=== PATIENT | male | born 1940 | race Caucasian/White ===

== ENCOUNTER → 2017-03-18 | Outpatient (CLI) | payer MEDICARE, BC ==
[~2017-03-18] MED LIST: ADVAIR 250/501 DISK IH; ALLOPURINOL300 MG PO; ASPIR 8181 M1 PO; BLOOD PRESSURE1 EA11 PO; CALCIUM WITH M1 EAC2 PO; CLEOCIN150 MG PO; DAILY VALUE1 EACH PO; FISH OIL 1,0001 EAC7 PO; FISH OIL SOFTG1 EACH PO; FLORASTOR250 MG PO; FUROSEMIDE20 MG PO; FUROSEMIDE40 MG PO; LANTUS (UNITS)1 UNIT IV; LANTUS 3 M100 UNITS1 SC; LISINOPRIL10 MG PO; LISINOPRIL5 MG PO; MULTIVITAMIN1 EAC2 PO; NORCO 5/3251 TABLET PO; NOVOLOG (UNITS1 UNIT IV; NOVOLOG 10100 UNITS/ SC; NOVOLOG PE100 UNITS/ SC; OMEPRAZOLE20 MG PO; OMEPRAZOLE40 M1 PO; PRESERVISION T1 EACH PO; PROAIR HFA8.5 GM IH; PROVENTIL,2.5 MG/0.5 IH; SIMVASTATIN20 MG PO; SIMVASTATIN5 MG PO; SPIRIVA1 INHALATI IH; TAMSULOSIN HCL0.4 MG PO; TYLENOL REGULA325 MG PO; ZYLOPRIM50 MG PO
== END | disposition home or self-care (01) ==
LOC: CDC 10:00
DX: N47.1 Phimosis (principal); N47.6 Balanoposthitis; R94.31 Abnormal electrocardiogram [ECG] [EKG]
CPT/HCPCS: 93000

== ENCOUNTER 2017-04-02 11:44 | Emergency (ER) | payer OTHER, BC ==
[~2017-04-02] VITALS: Ht 170.2 cm; Wt 130.8 kg
[2017-04-02] MEDS ORDERED: LANTUS 3 M100 UNITS1 SC (13:16)
[2017-04-02] MEDS ORDERED: ACETAMINOPHEN-1 EAC1 PO (13:17)
[2017-04-02 14:21] LABS: ADD MIUA? NO; BILIRUBIN NEGATIVE; BLOOD NEGATIVE; COLOR AMBER ((YELLOW)); GLUCOSE (STRIP) NEGATIVE; KETONES NEGATIVE; LEUKOCYTES NEGATIVE; NITRITE NEGATIVE; PROTEIN (STRIP) NEGATIVE; SPECIFIC GRAVITY 1.029 (1.000-1.030); UCUL ADDED? NO
[2017-04-02 14:58] LABS: HEMATOCRIT 44.3 % (38.0-50.0); MCH 29.7 PG (29.0-34.0); MCHC 32.7 G/DL (30.0-36.0); MCV 90.8 FL (86-99); RBC DIS.WIDTH-CV 13.5 % (11.8-14.6); RBC DIS.WIDTH-SD 45.6 % (39-53); RED BLOOD COUNT 4.88 M/uL (4.00-5.50)
[2017-04-02 14:59] LABS: PLATELET COUNT 251 K/uL (156-360)
[2017-04-02 15:06] LABS: CHLORIDE 108 mEq/L (99-109); POTASSIUM 4.8 mEq/L (3.7-5.4); SODIUM 140 mEq/L (136-147)
[2017-04-02 15:08] LABS: GLUCOSE 173 mg/dL (70-99)
[2017-04-02 15:09] LABS: ANION GAP 11 MEQ/L (2-14)
[2017-04-02 15:12] LABS: GFR ESTIMATE (CALCULATED) > 59 mL/min/; UREA NITROGEN (BUN) 30 mg/dL (9-23)
[2017-04-02] MEDS ORDERED: PERCOCET 5/31 TABLET PO (15:33)
[2017-04-02] MEDS ORDERED: MYCOSTATIN15 GM PO (15:33)
[2017-04-02 15:45] VITALS: BP 128/89
== END 2017-04-02 15:45 | disposition home or self-care (01) ==
LOC: EME 11:44
PROVIDERS: Physician Assistant
DX: G89.18 Other acute postprocedural pain (principal); N48.89 Other specified disorders of penis; Z98.890 Other specified postprocedural states; R30.0 Dysuria; R21 Rash and other nonspecific skin eruption; E11.9 Type 2 diabetes mellitus without complications; Z79.4 Long term (current) use of insulin; I10 Essential (primary) hypertension; J44.9 Chronic obstructive pulmonary disease, unspecified; Z85.038 Personal history of other malignant neoplasm of large intestine; Z87.891 Personal history of nicotine dependence
CPT/HCPCS: 80048; 81003; 85027; 87070; 87075; 87205; 99281; 99284

== ENCOUNTER 2017-06-25 11:01 | Inpatient (IN) | payer OTHER, BC ==
[~2017-06-25] VITALS: Ht 170.2 cm; Wt 116.7 kg
[~2017-06-25 11:01] MED LIST changes: +ACETAMINOPHEN-1 EAC1 PO; +ADVAIR 100/501 DISK IH; +AUGMENTIN875 MG PO; +AZITHROMYCIN250 MG PO; +CHOLESTYRAMINE378 GM PO; +COLD-FLU RELIE295 ML PO; +MYCOSTATIN15 GM PO; +PERCOCET 5/31 TABLET PO; +PREDNISONE20 MG PO; +VITAMIN D31000 UNI2 PO
[2017-06-25 11:59] LABS: EOSINOPHIL (%) 4.7 % (0-5); EOSINOPHIL COUNT 0.2 K/uL (0-0.3); HEMATOCRIT 42.7 % (38.0-50.0); IMMATURE GRANULOCYTE (%) 0.3 % (0.0-0.7); INSTRUMENT ABS NEUTROPHIL CT 1.4 K/uL; LYMPHOCYTE COUNT 1.4 K/uL (1.0-2.8); MCH 30.7 PG (29.0-34.0); MCHC 33.5 G/DL (30.0-36.0); MCV 91.6 FL (86-99); MEAN PLAT.VOLUME 8.9 uM^3 (9.0-12.4); MONOCYTE (%) 13.2 % (3-12); MONOCYTE COUNT 0.5 K/uL (0-0.8); NEUTROPHIL (%) 40.2 % (45-76); NEUTROPHIL COUNT 1.4 K/uL (1.8-6.4); PLATELET COUNT 191 K/uL (156-360); RBC DIS.WIDTH-CV 13.7 % (11.8-14.6); RED BLOOD COUNT 4.66 M/uL (4.00-5.50); WHITE BLOOD COUNT 3.4 K/uL (4.1-10.2)
[2017-06-25 12:13] LABS: CHLORIDE 105 mEq/L (99-109); POTASSIUM 4.1 mEq/L (3.7-5.4); SODIUM 139 mEq/L (136-147)
[2017-06-25 12:15] LABS: GLUCOSE 164 mg/dL (70-99)
[2017-06-25 12:16] LABS: ANION GAP 9 MEQ/L (2-14)
[2017-06-25 12:18] LABS: GFR ESTIMATE (CALCULATED) > 59 mL/min/
[2017-06-25 12:19] LABS: TROP-I INTERPRETATION NEGATIVE; TROPONIN-I < 0.01 ng/mL (0.0-0.30); UREA NITROGEN (BUN) 11 mg/dL (9-23)
[2017-06-25] MEDS ORDERED: FLORASTOR250 MG PO (16:27)
[2017-06-25] MEDS ORDERED: NOVOLOG PE100 UNITS/ SC (16:27)
[2017-06-25] MEDS ORDERED: CORTEF5 M1 PO (16:28)
[2017-06-25 17:13] VITALS: BP 144/75
[2017-06-25 19:30] VITALS: BP 122/64
[2017-06-25 22:14] LABS: POINT-OF-CARE METER ID UU13113831
[2017-06-25 23:48] VITALS: BP 95/55
[2017-06-26 03:16] VITALS: BP 122/62
[2017-06-26 07:12] VITALS: BP 122/70; BP 90/56
[2017-06-26 07:52] LABS: POINT-OF-CARE METER ID UU13113831
[2017-06-26 08:31] LABS: POINT-OF-CARE METER ID UU13113831
[2017-06-26 08:39] LABS: HEMATOCRIT 42.8 % (38.0-50.0); MCH 30.5 PG (29.0-34.0); MCHC 32.9 G/DL (30.0-36.0); MCV 92.4 FL (86-99); MEAN PLAT.VOLUME 9.2 uM^3 (9.0-12.4); PLATELET COUNT 209 K/uL (156-360); RBC DIS.WIDTH-SD 47.4 % (39-53); RED BLOOD COUNT 4.63 M/uL (4.00-5.50); WHITE BLOOD COUNT 3.3 K/uL (4.1-10.2)
[2017-06-26 09:12] LABS: ALKALINE PHOSPHATASE 68 IU/L (3-129); ANION GAP 11 MEQ/L (2-14); CHLORIDE 105 MEQ/L (99-109); GFR ESTIMATE (CALCULATED) > 59 mL/min/; SAMPLE HEMOLYSIS CHECK 0; SAMPLE ICTERIC CHECK 0; SAMPLE LIPEMIA CHECK 0; SODIUM 141 MEQ/L (136-147); TOTAL BILIRUBIN 1.2 MG/DL (0.0-1.0); UREA NITROGEN (BUN) 11 mg/dL (9-23)
[2017-06-26 09:15] LABS: GLUCOSE 74 mg/dL (70-99)
[2017-06-26 10:00] LABS: INTERNAL CONTROL VALID? YES
[2017-06-26 11:13] LABS: C DIFF TOXIN NEGATIVE (NEGATIVE)
[2017-06-26 11:14] LABS: PROBE CHECK PASS; SPECIMEN PROCESSING CONTROL PASS
[2017-06-26 11:19] VITALS: BP 115/81
[2017-06-26 12:12] LABS: POINT-OF-CARE METER ID UU13113831
[2017-06-26 15:27] VITALS: BP 115/58
[2017-06-26 17:28] LABS: POINT-OF-CARE METER ID UU13113831
[2017-06-26 19:43] VITALS: BP 112/54
[2017-06-26 21:01] LABS: POINT-OF-CARE METER ID UU14162513
[2017-06-27] VITALS (7 sets, daily range): BP systolic 104–135; BP diastolic 56–81
[2017-06-27 07:34] LABS: POINT-OF-CARE METER ID UU14162513
[2017-06-27 12:29] LABS: POINT-OF-CARE METER ID UU14162513
[2017-06-27 17:49] LABS: POINT-OF-CARE METER ID UU14162513
[2017-06-27 22:10] LABS: POINT-OF-CARE METER ID UU13113831
[2017-06-28] VITALS (7 sets, daily range): BP systolic 87–146; BP diastolic 54–77
[2017-06-28 08:14] LABS: POINT-OF-CARE METER ID UU13113700
[2017-06-28 12:24] LABS: POINT-OF-CARE METER ID UU13113700
[2017-06-28 17:12] LABS: POINT-OF-CARE METER ID UU13113700
[2017-06-28 22:05] LABS: POINT-OF-CARE METER ID UU13113700
[2017-06-29 04:05] VITALS: BP 132/78
[2017-06-29 07:11] VITALS: BP 135/86
[2017-06-29 09:07] LABS: POINT-OF-CARE METER ID UU13113700
[2017-06-29 10:55] VITALS: BP 135/75
[2017-06-29 10:56] VITALS: BP 133/81
[2017-06-29 11:01] VITALS: BP 93/66
[2017-06-29] MEDS ORDERED: CORTEF10 MG PO (11:22)
[2017-06-29] MEDS ORDERED: LANTUS 3 M100 UNITS1 SC (11:22)
[2017-06-29 12:39] LABS: POINT-OF-CARE METER ID UU13113700
== END 2017-06-29 14:00 | disposition home or self-care (01) | DRG 312 ==
LOC: EME 11:01 → EDOF 15:42 → ENRESERV 15:47 → 5WEST 17:02 → CANRESERV 06-26 10:33 → ENRESERV 06-26 10:33 → 5WEST 06-29 14:00
PROVIDERS: Emergency Medicine; Internal Medicine; Nurse Practitioner Adult Health
DX: I95.1 Orthostatic hypotension (principal); E86.0 Dehydration; M10.9 Gout, unspecified; J44.9 Chronic obstructive pulmonary disease, unspecified; J43.9 Emphysema, unspecified; I10 Essential (primary) hypertension; H35.30 Unspecified macular degeneration; G47.33 Obstructive sleep apnea (adult) (pediatric); E11.51 Type 2 diabetes mellitus with diabetic peripheral angiopathy without gangrene; G93.89 Other specified disorders of brain; G51.0 Bell's palsy; E78.5 Hyperlipidemia, unspecified; E66.01 Morbid (severe) obesity due to excess calories; R63.4 Abnormal weight loss; Z90.49 Acquired absence of other specified parts of digestive tract; Z87.891 Personal history of nicotine dependence; Z79.4 Long term (current) use of insulin; Z85.038 Personal history of other malignant neoplasm of large intestine; Z82.3 Family history of stroke; Z79.899 Other long term (current) drug therapy; Z80.0 Family history of malignant neoplasm of digestive organs; Z68.41 Body mass index [BMI] 40.0-44.9, adult; Z87.01 Personal history of pneumonia (recurrent); Z80.42 Family history of malignant neoplasm of prostate; Z80.3 Family history of malignant neoplasm of breast; Z86.73 Personal history of transient ischemic attack (TIA), and cerebral infarction without residual deficits; E87.70 Fluid overload, unspecified
CPT/HCPCS: 36415; 70450; 70551; 71010; 71020; 72070; 72100; 80048; 80053; 80069; 80400; 82024 90; 82043; 82272; 82533; 82533 91; 82570; 82948; 83880; 84484; 85025; 85027; 87177; 87493; 87506; 93005; 93306; 94640; 94640 76; 94760; 94799; 97530 GO; 97530 GP; 99202; 99281; 99284; 99285; G0378; G8978 GP CJ; G8979 GP CI; G8987 GO CJ; G8988 CI; J0834; J1650; J7030; J7040; J7120

== ENCOUNTER 2017-08-21 02:11 | Inpatient (IN) | payer OTHER, BC ==
[~2017-08-21] VITALS: Ht 170.2 cm; Wt 115.1 kg
[~2017-08-21 02:11] MED LIST changes: +CORTEF10 MG PO; +CORTEF5 M1 PO
[2017-08-21 04:09] LABS: HEMATOCRIT 38.3 % (38.0-50.0); HEMOGLOBIN 13.1 G/DL (12.5-16.6); MCH 30.2 PG (29.0-34.0); MCHC 34.2 G/DL (30.0-36.0); MCV 88.2 FL (86-99); PLATELET COUNT 152 K/uL (156-360); RBC DIS.WIDTH-CV 12.6 % (11.8-14.6); RED BLOOD COUNT 4.34 M/uL (4.00-5.50); WHITE BLOOD COUNT 5.2 K/uL (4.1-10.2)
[2017-08-21 04:15] LABS: INTER. NORMALIZED RATIO 1.1
[2017-08-21 04:18] LABS: PTT 29.5 SEC (25-37)
[2017-08-21 04:20] LABS: ALBUMIN 3.4 g/dL (3.2-4.8); CHLORIDE 106 mEq/L (99-109); POTASSIUM 4.4 mEq/L (3.7-5.4); SODIUM 136 mEq/L (136-147)
[2017-08-21 04:22] LABS: GLUCOSE 326 mg/dL (70-99)
[2017-08-21 04:23] LABS: TOTAL PROTEIN 5.6 g/dL (6.4-8.3)
[2017-08-21 04:24] LABS: TOTAL BILIRUBIN 0.6 mg/dL (0.0-1.0)
[2017-08-21 04:26] LABS: ALKALINE PHOSPHATASE 109 IU/L (3-129); GFR ESTIMATE (CALCULATED) > 59 mL/min/ (58.99-99999)
[2017-08-21 04:27] LABS: UREA NITROGEN (BUN) 11 mg/dL (9-23)
[2017-08-21 04:28] LABS: AST (GOT) 30 IU/L (2-34)
[2017-08-21 04:29] LABS: ALT (GPT) 29 IU/L (3-49); LIPASE 6 U/L (1.0-51.0)
[2017-08-21 04:30] LABS: TROP-I INTERPRETATION NEGATIVE; TROPONIN-I < 0.01 ng/mL (0.0-0.30)
[2017-08-21 06:32] LABS: APPEARANCE CLEAR ((CLEAR)); BILIRUBIN NEGATIVE; BLOOD NEGATIVE; COLOR YELLOW ((YELLOW)); GLUCOSE (STRIP) >=500; KETONES NEGATIVE; LEUKOCYTES NEGATIVE; NITRITE NEGATIVE; PROTEIN (STRIP) NEGATIVE; SPECIFIC GRAVITY 1.016 (1.000-1.030); UROBILINOGEN 0.2 MG/DL (0.2-1.0)
[2017-08-21] MEDS ORDERED: FLOMAX0.4 MG PO (08:15)
[2017-08-21] MEDS ORDERED: LANTUS 3 M100 UNITS1 SC (08:16)
[2017-08-21] MEDS ORDERED: FLORINEF ACETA0.1 MG PO (08:17)
[2017-08-21 17:00] VITALS: BP 134/71
[2017-08-21 20:04] VITALS: BP 123/53
[2017-08-21 23:21] VITALS: BP 124/69
[2017-08-22 04:00] VITALS: BP 150/69
[2017-08-22 05:55] LABS: BASOPHIL (%) 0.4 % (0-1); EOSINOPHIL (%) 6.4 % (0-5); EOSINOPHIL COUNT 0.3 K/uL (0-0.3); HEMATOCRIT 39.4 % (38.0-50.0); HEMOGLOBIN 13.5 G/DL (12.5-16.6); IMMATURE GRANULOCYTE (%) 0.2 % (0.0-0.7); LYMPHOCYTE (%) 36.1 % (15-42); LYMPHOCYTE COUNT 1.8 K/uL (1.0-2.8); MCH 30.6 PG (29.0-34.0); MCHC 34.3 G/DL (30.0-36.0); MCV 89.3 FL (86-99); MONOCYTE (%) 9.4 % (3-12); MONOCYTE COUNT 0.5 K/uL (0-0.8); NEUTROPHIL (%) 47.5 % (45-76); NEUTROPHIL COUNT 2.3 K/uL (1.8-6.4); PLATELET COUNT 155 K/uL (156-360); RBC DIS.WIDTH-CV 12.5 % (11.8-14.6); RBC DIS.WIDTH-SD 41.3 % (39-53); RED BLOOD COUNT 4.41 M/uL (4.00-5.50); WHITE BLOOD COUNT 4.9 K/uL (4.1-10.2)
[2017-08-22 06:29] LABS: CHLORIDE 105 MEQ/L (99-109); GFR ESTIMATE (CALCULATED) > 59 mL/min/ (58.99-99999); GLUCOSE 181 mg/dL (70-99); SODIUM 140 MEQ/L (136-147); UREA NITROGEN (BUN) 12 mg/dL (9-23)
[2017-08-22 08:00] VITALS: BP 137/81
[2017-08-22] MEDS ORDERED: AMLODIPINE BESYL5 MG PO (11:31)
[2017-08-22 11:51] VITALS: BP 124/76
[2017-08-22 15:11] VITALS: BP 119/61
[2017-08-22 20:00] VITALS: BP 149/80
[2017-08-22 23:35] VITALS: BP 145/65
[2017-08-23 03:31] VITALS: BP 140/68
[2017-08-23 08:36] VITALS: BP 153/78
[2017-08-23 11:14] VITALS: BP 137/89
== END 2017-08-23 13:12 | disposition home health service (06) | DRG 86 ==
LOC: EME 02:11 → EDOF 04:51 → 4EAST 04:51 → ENRESERV 04:55 → 4EAST 16:48 → ENPENDDIS 08-23 → 4EAST 08-23 13:12
PROVIDERS: Emergency Medicine; Hospitalist; Internal Medicine
DX: S06.5X0A Traumatic subdural hemorrhage without loss of consciousness, initial encounter (principal); E27.40 Unspecified adrenocortical insufficiency; E55.9 Vitamin D deficiency, unspecified; E11.65 Type 2 diabetes mellitus with hyperglycemia; I10 Essential (primary) hypertension; J43.9 Emphysema, unspecified; W01.0XXA Fall on same level from slipping, tripping and stumbling without subsequent striking against object, initial encounter; Y92.009 Unspecified place in unspecified non-institutional (private) residence as the place of occurrence of the external cause; M10.9 Gout, unspecified; K21.9 Gastro-esophageal reflux disease without esophagitis; E78.5 Hyperlipidemia, unspecified; G51.0 Bell's palsy; Z87.891 Personal history of nicotine dependence; S50.811A Abrasion of right forearm, initial encounter; M19.90 Unspecified osteoarthritis, unspecified site; Z79.4 Long term (current) use of insulin; Z66 Do not resuscitate; Y93.01 Activity, walking, marching and hiking
CPT/HCPCS: 70450; 70486; 71045; 72125; 73080; 73090; 80048; 80053; 81003; 82948; 83690; 84484; 85025; 85027; 85610; 85730; 93005; 94640; 94640 76; 94760; 99202; 99281; 99285; J1815

== ENCOUNTER 2017-08-24 09:33 | Emergency (ER) | payer OTHER, BC ==
[~2017-08-24] VITALS: Ht 170.2 cm; Wt 118.0 kg
[~2017-08-24 09:33] MED LIST changes: +AMLODIPINE BESYL5 MG PO; +FLOMAX0.4 MG PO; +FLORINEF ACETA0.1 MG PO
[2017-08-24 09:55] LABS: BASOPHIL (%) 0.5 % (0-1); EOSINOPHIL (%) 4.2 % (0-5); EOSINOPHIL COUNT 0.3 K/uL (0-0.3); HEMATOCRIT 43.5 % (38.0-50.0); HEMOGLOBIN 14.8 G/DL (12.5-16.6); IMMATURE GRANULOCYTE (%) 0.4 % (0.0-0.7); LYMPHOCYTE (%) 29.5 % (15-42); LYMPHOCYTE COUNT 2.3 K/uL (1.0-2.8); MCH 30.1 PG (29.0-34.0); MCV 88.4 FL (86-99); MONOCYTE (%) 10.8 % (3-12); MONOCYTE COUNT 0.8 K/uL (0-0.8); NEUTROPHIL (%) 54.6 % (45-76); NEUTROPHIL COUNT 4.3 K/uL (1.8-6.4); PLATELET COUNT 180 K/uL (156-360); RBC DIS.WIDTH-CV 12.6 % (11.8-14.6); RBC DIS.WIDTH-SD 41.1 % (39-53); RED BLOOD COUNT 4.92 M/uL (4.00-5.50); WHITE BLOOD COUNT 7.8 K/uL (4.1-10.2)
[2017-08-24 10:57] LABS: CHLORIDE 103 MEQ/L (99-109); CREATININE 1.1 MG/DL (0.6-1.3); GFR ESTIMATE (CALCULATED) > 59 mL/min/ (58.99-99999); POTASSIUM 4.4 MEQ/L (3.7-5.4); SODIUM 139 MEQ/L (136-147)
[2017-08-24 11:00] LABS: GLUCOSE 284 mg/dL (70-99); UREA NITROGEN (BUN) 21 mg/dL (9-23)
[2017-08-24 12:54] VITALS: BP 147/87
== END 2017-08-24 12:56 | disposition home or self-care (01) ==
LOC: EME 09:33
PROVIDERS: Emergency Medicine
DX: S00.83XA Contusion of other part of head, initial encounter (principal); S30.0XXA Contusion of lower back and pelvis, initial encounter; W01.0XXA Fall on same level from slipping, tripping and stumbling without subsequent striking against object, initial encounter; R29.6 Repeated falls; Z91.81 History of falling; J44.9 Chronic obstructive pulmonary disease, unspecified; I10 Essential (primary) hypertension; E11.9 Type 2 diabetes mellitus without complications; Z79.4 Long term (current) use of insulin; Z85.038 Personal history of other malignant neoplasm of large intestine; Z87.891 Personal history of nicotine dependence
CPT/HCPCS: 70450; 72100; 72170; 80048; 85025; 93005; 99281; 99285

== ENCOUNTER 2017-11-20 21:13 | Inpatient (IN) | payer OTHER, BC ==
[~2017-11-20] VITALS: Ht 170.2 cm; Wt 112.6 kg
[~2017-11-20 21:13] MED LIST changes: +CENTRUM MEN'S1 EACH PO; +IRON325 M1 PO
[2017-11-21 08:27] VITALS: BP 154/81
[2017-11-21 14:53] VITALS: BP 127/66
[2017-11-21 18:11] VITALS: BP 121/73
[2017-11-21 20:10] VITALS: BP 127/68
[2017-11-22] VITALS: BP 131/72
[2017-11-22 04:04] VITALS: BP 129/72
[2017-11-22 05:54] LABS: HEMATOCRIT 35.9 % (38.0-50.0); MCV 90.9 FL (86-99)
[2017-11-22 05:55] LABS: HEMOGLOBIN 11.9 G/DL (12.5-16.6)
[2017-11-22 05:56] LABS: CHLORIDE 106 MEQ/L (99-109); CREATININE 1.4 MG/DL (0.6-1.3); GFR ESTIMATE (CALCULATED) 53 mL/min/ (58.99-99999); GLUCOSE 166 mg/dL (70-99); POTASSIUM 4.2 MEQ/L (3.7-5.4); SODIUM 141 MEQ/L (136-147); UREA NITROGEN (BUN) 24 mg/dL (9-23)
[2017-11-22 08:07] VITALS: BP 135/76
[2017-11-22 12:03] VITALS: BP 124/97
[2017-11-22 15:45] VITALS: BP 119/65
[2017-11-22 20:26] VITALS: BP 158/74
[2017-11-23] VITALS: BP 135/68
[2017-11-23 04:26] VITALS: BP 131/68
[2017-11-23 05:53] LABS: HEMATOCRIT 37.8 % (38.0-50.0); HEMOGLOBIN 12.6 G/DL (12.5-16.6); MCV 89.6 FL (86-99)
[2017-11-23 08:16] LABS: ALBUMIN 3.3 G/DL (3.2-4.8); ALKALINE PHOSPHATASE 56 IU/L (3-129); ALT (GPT) 8 IU/L (3-49); AST (GOT) 17 IU/L (2-34); CHLORIDE 106 MEQ/L (99-109); CREATININE 1.2 MG/DL (0.6-1.3); GFR ESTIMATE (CALCULATED) > 59 mL/min/ (58.99-99999); POTASSIUM 4.1 MEQ/L (3.7-5.4); SODIUM 140 MEQ/L (136-147); TOTAL BILIRUBIN 0.7 MG/DL (0.0-1.0); TOTAL PROTEIN 5.4 G/DL (6.4-8.3); UREA NITROGEN (BUN) 22 mg/dL (9-23)
[2017-11-23 08:34] LABS: GLUCOSE 94 mg/dL (70-99)
[2017-11-23 08:40] VITALS: BP 156/83
[2017-11-23] MEDS ORDERED: CELECOXIB200 MG PO (08:46)
[2017-11-23] MEDS ORDERED: OXYCODONE HCL5 MG PO (08:46)
[2017-11-23] MEDS ORDERED: ELIQUIS2.5 MG PO (08:46)
[2017-11-23 12:00] VITALS: BP 147/68
[2017-11-23 15:59] VITALS: BP 122/67
[2017-11-23] MEDS ORDERED: ZEASORB-AF70 G1 TP (17:00)
== END 2017-11-23 16:35 | DRG 470 ==
LOC: ENRESERV 21:13 → 2SOUTH 11-21 07:38 → 3WEST 11-21 07:38 → 2SOUTH 11-21 08:48 → 3WEST 11-21 14:44 → 2SOUTH 11-21 15:06 → 3WEST 11-23 16:35
PROVIDERS: Orthopaedic Surgery
PROC: 0SRC0J9 Replacement of Right Knee Joint with Synthetic Substitute, Cemented, Open Approach (ICD-10-PCS; principal; 2017-11-21)
DX: M17.11 Unilateral primary osteoarthritis, right knee (principal); R79.89 Other specified abnormal findings of blood chemistry; B37.2 Candidiasis of skin and nail; I10 Essential (primary) hypertension; J44.9 Chronic obstructive pulmonary disease, unspecified; G47.30 Sleep apnea, unspecified; M10.9 Gout, unspecified; E11.9 Type 2 diabetes mellitus without complications; K21.9 Gastro-esophageal reflux disease without esophagitis; K44.9 Diaphragmatic hernia without obstruction or gangrene; F32.9 Major depressive disorder, single episode, unspecified; Z87.01 Personal history of pneumonia (recurrent); Z87.891 Personal history of nicotine dependence; Z79.4 Long term (current) use of insulin; Z85.038 Personal history of other malignant neoplasm of large intestine; Z91.81 History of falling
CPT/HCPCS: 80048; 80053; 82948; 85014; 85018; 94640; 94640 76; 94799; 99202; C1713; J0131; J0690; J1720; J1815; J1885; J2250; J2405; J2795; J7030; J7050

== ENCOUNTER 2017-11-23 11:22 | Inpatient (IN) | payer OTHER, BC ==
[~2017-11-23] VITALS: Ht 170.2 cm; Wt 118.2 kg
[~2017-11-23 11:22] MED LIST changes: +CELECOXIB200 MG PO; +ELIQUIS2.5 MG PO; +OXYCODONE HCL5 MG PO
[2017-11-23] MEDS ORDERED: ZEASORB-AF70 G1 TP (17:00)
[2017-11-23 17:01] VITALS: BP 119/58
[2017-11-24 00:01] VITALS: BP 130/64
[2017-11-24 06:07] VITALS: BP 138/76
[2017-11-24 09:29] LABS: HEMATOCRIT 36.6 % (38.0-50.0); HEMOGLOBIN 12.3 G/DL (12.5-16.6); MCH 30.1 PG (29.0-34.0); MCHC 33.6 G/DL (30.0-36.0); MCV 89.7 FL (86-99); PLATELET COUNT 178 K/uL (156-360); RBC DIS.WIDTH-SD 42.3 % (39-53); RED BLOOD COUNT 4.08 M/uL (4.00-5.50); WHITE BLOOD COUNT 8.4 K/uL (4.1-10.2)
[2017-11-24 10:03] LABS: ALBUMIN 3.3 G/DL (3.2-4.8); ALKALINE PHOSPHATASE 65 IU/L (3-129); ALT (GPT) 7 IU/L (3-49); AST (GOT) 17 IU/L (2-34); CHLORIDE 107 MEQ/L (99-109); GFR ESTIMATE (CALCULATED) > 59 mL/min/ (58.99-99999); GLUCOSE 75 mg/dL (70-99); SODIUM 137 MEQ/L (136-147); TOTAL BILIRUBIN 0.8 MG/DL (0.0-1.0); TOTAL PROTEIN 5.6 G/DL (6.4-8.3); UREA NITROGEN (BUN) 23 mg/dL (9-23)
[2017-11-24 15:04] VITALS: BP 108/56
[2017-11-25 05:25] VITALS: BP 138/68
[2017-11-25 15:43] VITALS: BP 114/58
[2017-11-26 05:40] VITALS: BP 131/63
[2017-11-26 15:19] VITALS: BP 146/68
[2017-11-27 04:56] VITALS: BP 132/63
[2017-11-27 16:12] VITALS: BP 113/62
[2017-11-28 05:56] VITALS: BP 126/59
[2017-11-28 16:19] VITALS: BP 111/63
[2017-11-29 05:54] VITALS: BP 123/58
[2017-11-29 16:08] VITALS: BP 128/63
[2017-11-30 05:45] LABS: BASOPHIL (%) 0.5 % (0-1); EOSINOPHIL (%) 8.6 % (0-5); EOSINOPHIL COUNT 0.5 K/uL (0-0.3); HEMATOCRIT 32.9 % (38.0-50.0); IMMATURE GRANULOCYTE (%) 1.3 % (0.0-0.7); LYMPHOCYTE (%) 25.8 % (15-42); LYMPHOCYTE COUNT 1.6 K/uL (1.0-2.8); MCH 29.8 PG (29.0-34.0); MCHC 33.4 G/DL (30.0-36.0); MCV 89.2 FL (86-99); MONOCYTE (%) 8.7 % (3-12); MONOCYTE COUNT 0.5 K/uL (0-0.8); NEUTROPHIL (%) 55.1 % (45-76); NEUTROPHIL COUNT 3.4 K/uL (1.8-6.4); PLATELET COUNT 228 K/uL (156-360); RBC DIS.WIDTH-CV 13.1 % (11.8-14.6); RBC DIS.WIDTH-SD 41.9 % (39-53); RED BLOOD COUNT 3.69 M/uL (4.00-5.50); WHITE BLOOD COUNT 6.2 K/uL (4.1-10.2)
[2017-11-30 05:52] VITALS: BP 131/62
[2017-11-30 06:07] LABS: ALBUMIN 3.1 G/DL (3.2-4.8); ALKALINE PHOSPHATASE 78 IU/L (3-129); AST (GOT) 17 IU/L (2-34); CHLORIDE 107 MEQ/L (99-109); CREATININE 1.1 MG/DL (0.6-1.3); GFR ESTIMATE (CALCULATED) > 59 mL/min/ (58.99-99999); GLUCOSE 192 mg/dL (70-99); SODIUM 141 MEQ/L (136-147); TOTAL PROTEIN 5.1 G/DL (6.4-8.3); UREA NITROGEN (BUN) 22 mg/dL (9-23)
[2017-11-30 06:08] LABS: ALT (GPT) 15 IU/L (3-49)
[2017-11-30 15:14] VITALS: BP 132/70
[2017-12-01 05:30] VITALS: BP 128/58
[2017-12-01 08:22] VITALS: BP 133/70
[2017-12-01 15:35] VITALS: BP 134/69
[2017-12-02 05:10] VITALS: BP 129/61
[2017-12-02 07:25] VITALS: BP 137/71
[2017-12-02] MEDS ORDERED: BISACODYL5 MG PO (11:40)
[2017-12-02] MEDS ORDERED: ASCORBIC ACID500 M3 PO (11:40)
[2017-12-02] MEDS ORDERED: ELIQUIS2.5 MG PO (11:40)
[2017-12-02] MEDS ORDERED: TYLENOL REGULA325 MG PO (11:40)
[2017-12-02] MEDS ORDERED: FOLIC ACID1 MG PO (11:40)
[2017-12-02] MEDS ORDERED: OXYCODONE HCL5 MG PO (11:40)
[2017-12-02] MEDS ORDERED: SENNA PLUS TAB1 EACH PO (11:40)
== END 2017-12-02 14:40 | disposition home health service (06) | DRG 560 ==
LOC: 3WEST 11:22 → ENPENDDIS 12-02 → 3WEST 12-02 14:40
PROVIDERS: Physical Medicine & Rehabilitation Pain Medicine; Psychiatry & Neurology Neurology
PROC: F07M0ZZ Range of Motion and Joint Mobility Treatment of Musculoskeletal System - Whole Body (ICD-10-PCS; principal; 2017-11-23)
DX: Z47.1 Aftercare following joint replacement surgery (principal); R26.2 Difficulty in walking, not elsewhere classified; Z96.651 Presence of right artificial knee joint; D62 Acute posthemorrhagic anemia; I10 Essential (primary) hypertension; E11.9 Type 2 diabetes mellitus without complications; J44.9 Chronic obstructive pulmonary disease, unspecified; R60.9 Edema, unspecified; E66.01 Morbid (severe) obesity due to excess calories; Z68.41 Body mass index [BMI] 40.0-44.9, adult; G47.30 Sleep apnea, unspecified; M10.9 Gout, unspecified; G51.0 Bell's palsy; H35.30 Unspecified macular degeneration; F32.9 Major depressive disorder, single episode, unspecified; Z82.49 Family history of ischemic heart disease and other diseases of the circulatory system; Z83.3 Family history of diabetes mellitus; Z85.038 Personal history of other malignant neoplasm of large intestine
CPT/HCPCS: 80053; 82948; 85025; 85027; 94640; 94640 76; 97110 GO; 97530 GP; J1815

== ENCOUNTER 2017-12-18 14:51 | Inpatient (IN) | payer OTHER, BC ==
[~2017-12-18] VITALS: Ht 170.2 cm; Wt 106.3 kg
[~2017-12-18 14:51] MED LIST changes: +ASCORBIC ACID500 M3 PO; +BISACODYL5 MG PO; +FOLIC ACID1 MG PO; +SENNA PLUS TAB1 EACH PO; +ZEASORB-AF70 G1 TP
[2017-12-18 23:14] LABS: BASOPHIL (%) 0.4 % (0-1); EOSINOPHIL (%) 4.9 % (0-5); EOSINOPHIL COUNT 0.3 K/uL (0-0.3); HEMATOCRIT 41.5 % (38.0-50.0); IMMATURE GRANULOCYTE (%) 0.3 % (0.0-0.7); LYMPHOCYTE (%) 30.4 % (15-42); LYMPHOCYTE COUNT 2.1 K/uL (1.0-2.8); MCH 29.8 PG (29.0-34.0); MCHC 33.7 G/DL (30.0-36.0); MCV 88.3 FL (86-99); NEUTROPHIL COUNT 3.5 K/uL (1.8-6.4); PLATELET COUNT 238 K/uL (156-360); RBC DIS.WIDTH-CV 13.4 % (11.8-14.6); RBC DIS.WIDTH-SD 43.3 % (39-53)
[2017-12-18 23:24] LABS: CHLORIDE 103 mEq/L (99-109); POTASSIUM 3.9 mEq/L (3.7-5.4); SODIUM 139 mEq/L (136-147)
[2017-12-18 23:25] LABS: GLUCOSE 207 mg/dL (70-99)
[2017-12-18 23:29] LABS: CREATININE 1.3 mg/dL (0.6-1.3); GFR ESTIMATE (CALCULATED) 57 mL/min/ (58.99-99999)
[2017-12-18 23:30] LABS: UREA NITROGEN (BUN) 19 mg/dL (9-23)
[2017-12-19] MEDS ORDERED: NORVASC5 MG PO (00:30)
[2017-12-19] MEDS ORDERED: CELEBREX200 MG PO (00:32)
[2017-12-19 01:00] VITALS: BP 119/66
[2017-12-19 04:00] VITALS: BP 116/62
[2017-12-19 05:16] LABS: HEMATOCRIT 39.5 % (38.0-50.0); HEMOGLOBIN 13.2 G/DL (12.5-16.6); MCH 29.5 PG (29.0-34.0); MCHC 33.4 G/DL (30.0-36.0); MCV 88.4 FL (86-99); PLATELET COUNT 187 K/uL (156-360); RBC DIS.WIDTH-CV 13.4 % (11.8-14.6); RBC DIS.WIDTH-SD 43.6 % (39-53); RED BLOOD COUNT 4.47 M/uL (4.00-5.50); WHITE BLOOD COUNT 6.4 K/uL (4.1-10.2)
[2017-12-19 05:35] LABS: C-REACTIVE PROTEIN 146.9 MG/L (0-10); CHLORIDE 101 MEQ/L (99-109); CREATININE 1.4 MG/DL (0.6-1.3); GFR ESTIMATE (CALCULATED) 53 mL/min/ (58.99-99999); GLUCOSE 234 mg/dL (70-99); SODIUM 137 MEQ/L (136-147); UREA NITROGEN (BUN) 21 mg/dL (9-23)
[2017-12-19 05:50] LABS: ERTH.SED.RATE 31 MM/HR (0-20)
[2017-12-19 08:03] VITALS: BP 112/72
[2017-12-19 11:33] VITALS: BP 116/68
[2017-12-19 16:39] VITALS: BP 116/67
[2017-12-19 23:28] VITALS: BP 116/58
[2017-12-20 05:36] LABS: BASOPHIL (%) 0.4 % (0-1); EOSINOPHIL (%) 4.9 % (0-5); EOSINOPHIL COUNT 0.3 K/uL (0-0.3); HEMATOCRIT 36.9 % (38.0-50.0); HEMOGLOBIN 12.2 G/DL (12.5-16.6); IMMATURE GRANULOCYTE (%) 0.4 % (0.0-0.7); LYMPHOCYTE (%) 25.9 % (15-42); LYMPHOCYTE COUNT 1.4 K/uL (1.0-2.8); MCH 29.3 PG (29.0-34.0); MCHC 33.1 G/DL (30.0-36.0); MCV 88.5 FL (86-99); MONOCYTE (%) 12.4 % (3-12); MONOCYTE COUNT 0.7 K/uL (0-0.8); NEUTROPHIL COUNT 3.1 K/uL (1.8-6.4); PLATELET COUNT 204 K/uL (156-360); RBC DIS.WIDTH-CV 13.2 % (11.8-14.6); RBC DIS.WIDTH-SD 42.8 % (39-53); RED BLOOD COUNT 4.17 M/uL (4.00-5.50); WHITE BLOOD COUNT 5.6 K/uL (4.1-10.2)
[2017-12-20 06:02] LABS: CHLORIDE 102 MEQ/L (99-109); CREATININE 1.2 MG/DL (0.6-1.3); GFR ESTIMATE (CALCULATED) > 59 mL/min/ (58.99-99999); GLUCOSE 174 mg/dL (70-99); POTASSIUM 3.9 MEQ/L (3.7-5.4); SODIUM 135 MEQ/L (136-147); UREA NITROGEN (BUN) 23 mg/dL (9-23)
[2017-12-20 07:34] VITALS: BP 109/75
[2017-12-20] MEDS ORDERED: TRAMADOL HCL50 MG PO (12:09)
== END 2017-12-20 14:52 | DRG 556 ==
LOC: EME 14:51 → EDOF 23:39 → 3EAST 23:39 → ENRESERV 23:43 → 3EAST 12-19 01:00
PROVIDERS: Emergency Medicine; Hospitalist; Internal Medicine; Nurse Practitioner Adult Health
DX: M25.571 Pain in right ankle and joints of right foot (principal); R26.2 Difficulty in walking, not elsewhere classified; M79.661 Pain in right lower leg; M10.9 Gout, unspecified; M19.90 Unspecified osteoarthritis, unspecified site; K21.9 Gastro-esophageal reflux disease without esophagitis; J44.9 Chronic obstructive pulmonary disease, unspecified; E78.5 Hyperlipidemia, unspecified; I10 Essential (primary) hypertension; E66.9 Obesity, unspecified; Z68.36 Body mass index [BMI] 36.0-36.9, adult; Z96.651 Presence of right artificial knee joint; Z79.01 Long term (current) use of anticoagulants; Z60.2 Problems related to living alone; Z82.49 Family history of ischemic heart disease and other diseases of the circulatory system; Z83.3 Family history of diabetes mellitus
CPT/HCPCS: 73610; 73630; 73700; 80048; 82948; 84550; 85025; 85027; 85651; 86140; 93971; 99281; 99285; J1815; J3010; J7030